=== PATIENT | female | born 1995 | race Hispanic/Latino ===

== ENCOUNTER 2016-08-23 17:23 | Emergency (ER) | payer OTHER ==
[2016-08-23 17:58] VITALS: TEMP 97.9
--- NOTE | 2016-08-23 18:13 | ED.PDOC ---
History of Present Illness - General Chief Complaint: Abdominal Pain Stated Complaint: lower abdominal pain/vomiting Time Seen by Provider: 08/23/16 17:58 Information Source: patient Exam Limitations: no limitations Additional Information: 4 MOS . 2 D FEVER, MYALGIAS, NAUSEA, OCCAS VOMITING, MILD DIARRHEA, ABD CRAMPING (GENERALIZED, LOWER ABD, BL). NO VAG BLEEDING OR D/C. NO DYSURIA. RECENT OB APPT 1 MOS; NEXT APPT THIS COMING TUES. DENIES ANY PROBLEMS WITH THE SO FAR. - History of Present Illness Quality: mild Improving Factors: nothing Worsening Factors: nothing Associated Symptoms: fever/chills, nausea/vomiting Review of Systems - Review of Systems Constitutional: States: fever. Denies: diaphoresis, weakness EENTM: States: no symptoms reported Respiratory: States: no symptoms reported Cardiology: States: no symptoms reported Gastrointestinal/Abdominal: States: diarrhea. Denies: constipation Genitourinary: States: no symptoms reported Musculoskeletal: States: back pain Skin: States: no symptoms reported Neurological: States: no symptoms reported Endocrine: States: no symptoms reported Hematologic/Lymphatic: States: no symptoms reported All other Systems: Reviewed and Negative Past Medical History (General) - Patient Medical History Hx Diabetes: No Hx Renal Disease: No Surgical History: no surgical history - Social History Hx Substance Use: No - Female History Hx Last Menstrual Period: 07/05/13 Expected Date of Delivery:: 04/11/14 Family Medical History - Family History Grandparents Family History: Unknown Hx Family Diabetes: Yes Age of Onset (years of age): 51 Physical Exam - Physical Exam General Appearance: Alert, Comfortable Eyes, Ears, Nose, Throat Exam: PERRL/EOMI, normal ENT inspection Neck: non-tender, full range of motion Respiratory: chest non-tender, lungs clear Cardiovascular/Chest: normal peripheral pulses, regular rate, rhythm Gastrointestinal/Abdominal: normal bowel sounds, non tender, soft, no organomegaly, no pulsatile mass, other - HEART TONES 152, WNL. Back Exam: normal inspection, no CVA tenderness, no vertebral tenderness Extremity: normal range of motion, non-tender, normal inspection Neurologic: associate buyer II-XII nml as tested, no motor/sensory deficits, alert, normal mood/affect, oriented x 3 Skin Exam: normal color, warm/dry Lymphatic: no adenopathy Progress - Progress Progress: 08/23/16 18:17 DISCOMFORT FROM AND 2 D VIRAL GASTROENTERITIS. NO DEHYDRATION. NO ALARMING SX TO WARRANT FURTHER W/U. I EXPLAINED TO PT THAT TYLENOL IS SAFE BUT ZOFRAN FOR NAUSEA IS NO LONGER CONSIDERED COMPLETELY SAFE. I EXPLAINED IT IS A GI VIRUS, THUS ABX WON'T HELP AND WOULD LIKELY WORSEN. Departure - Departure Clinical Impression: Viral gastroenteritis, Round ligament pain, Nausea and vomiting during prior to 22 weeks gestation Disposition: Discharge to Home or Self Care Condition: Fair Departure Forms: ED Discharge - Pt. Copy, Patient Portal Self Enrollment Instructions: DI for Viral Gastroenteritis -- Adult Diet: bland diet Activity: increase activity as tolerated Additional Instructions: Please keep your appt with OB this coming Saturday. Drink plenty of fluids and get plenty of rest. Tylenol is safe for the discomfort. I hope you feel better soon.
[2016-08-23 18:46] VITALS: BP 103/70; O2SAT 97
== END 2016-08-23 18:42 | disposition home or self-care (01) ==
LOC: ER 17:23
DX: O99.612 Diseases of the digestive system complicating pregnancy, second trimester (principal); A08.4 Viral intestinal infection, unspecified; O21.0 Mild hyperemesis gravidarum; Z3A.00 Weeks of gestation of pregnancy not specified; Z83.3 Family history of diabetes mellitus

== ENCOUNTER → 2016-11-01 | Outpatient (CLI) | payer OTHER | END | disposition home or self-care (01) | LOC: LAB.O 09:54 | PROVIDERS: ATTEND Obstetrics & Gynecology | DX: Z34.82 Encounter for supervision of other normal pregnancy, second trimester (principal); Z3A.24 24 weeks gestation of pregnancy ==

== ENCOUNTER 2018-01-11 09:24 | Emergency (ER) | payer SELFPAY ==
[2018-01-11 09:34] VITALS: O2SAT 98
--- NOTE | 2018-01-11 10:06 | ED.PDOC ---
History of Present Illness - General Chief Complaint: ENT Problem Stated Complaint: Sore throat Time Seen by Provider: 01/11/18 10:05 Source: patient - History of Present Illness Initial Comments: Latrice Dominique 22 y/o female stated that she had achy throat since last week not getting better.No fever or chills but pain on swallowing ,no drooling .no ill contact.Denies chronic medical problem.Stated also unable to find IUD by sono by her Engagement Manager no x ray done.sometimes with occasional low pelvic pain.No dysuria. Timing/Duration: last week Severity: moderate EENT Location: throat Prearrival Treatment: no prearrival treatment Presenting Symptoms: sore throat Improving Factors: nothing Worsening Factors: eating Associated Symptoms: sore throat Allergies/Adverse Reactions: Allergies NO KNOWN ALLERGY Allergy (Unverified 01/11/18 09:34) Home Medications: Ambulatory Orders Clindamycin HCl 150 mg PO TID #21 cap 01/11/18 predniSONE 20 mg PO DAILY #7 tab 01/11/18 Review of Systems - Review of Systems Constitutional: States: no symptoms reported EENTM: States: see HPI Respiratory: States: no symptoms reported Cardiology: States: no symptoms reported Gastrointestinal/Abdominal: States: no symptoms reported Genitourinary: States: no symptoms reported Musculoskeletal: States: no symptoms reported Skin: States: no symptoms reported Neurological: States: no symptoms reported Endocrine: States: no symptoms reported Hematologic/Lymphatic: States: no symptoms reported Past Medical History (General) - Patient Medical History Hx Stroke: No Hx Congestive Heart Failure: No Hx Diabetes: No Hx Renal Disease: No Surgical History: no surgical history - Vaccination History Hx Influenza Vaccination: Yes - 2017 - Social History Hx Tobacco Use: No Hx Alcohol Use: No Hx Substance Use: No Hx Physical Abuse: No Hx Emotional Abuse: No - Female History Patient is a Female of Child Bearing Age (10 -59 yrs old): Yes - Has IUD; last period 2017 Hx Last Menstrual Period: 11/07/17 - spotting-w/IUD Patient : No Family Medical History - Family History Grandparents Family History: Unknown Living Status: Still Living Hx Family Diabetes: Yes Age of Onset (years of age): 51 Progress - Progress Progress: 01/11/18 10:20 01/11/18 09:34 STREP A SCREEN CULTURE Stat 01/11/18 10:18 Pelvis,2 or More Views [RAD] Stat MONOSCREEN Stat Laboratory Results - last 24 hr 01/11/18 09:34 Group A Strep Rapid Negative 01/11/18 10:21 Vital Signs - 8 hr 01/11/18 09:30 Temperature 98.8 F Pulse Rate [ 92 H Left Radial] Respiratory 18 Rate Blood Pressure 138/89 [Left Arm] O2 Sat by Pulse 98 Oximetry - Results/Orders Results/Orders: 01/11/18 09:34 STREP A SCREEN CULTURE Stat 01/11/18 10:18 Pelvis,2 or More Views [RAD] Stat Laboratory Results - last 24 hr 01/11/18 01/11/18 01/11/18 09:34 10:25 10:28 Serum HCG, Qual Negative Monoscreen Negative Group A Strep Rapid Negative - EKG/XRAY/CT XRAY: pelvis - IUD sacral ala Departure - Departure Clinical Impression: Acute tonsillitis due to other specified organisms, IUD check up Time of Disposition: 11:40 Disposition: Discharge to Home or Self Care Condition: Fair Departure Forms: ED Discharge - Pt. Copy, Patient Portal Self Enrollment Instructions: Sore Throat, Adult (DC), Sore Throat in Adults Referrals: Bushra Avila NP [Primary Care Provider] - 1-2 Weeks Prescriptions: Clindamycin HCl 150 mg PO TID #21 cap predniSONE 20 mg PO DAILY #7 tab Home Medications: Ambulatory Orders Clindamycin HCl 150 mg PO TID #21 cap 01/11/18 predniSONE 20 mg PO DAILY #7 tab 01/11/18 Additional Instructions: Need to follow up with your primary Md for your achy throat and Dr. Thompson for your IUD
[2018-01-11] MEDS ORDERED: DEXAMETHASONE INJ 4 MG/ML VIAL IM ONE (10:19)
[2018-01-11] MEDS ORDERED: CLINDAMYCIN HCL CAP 150 MG CAP PO ONE (10:19)
--- NOTE | 2018-01-11 11:31 | RAD ---
EXAM DESCRIPTION: Pelvis,2 or More Views CLINICAL HISTORY: iud location COMPARISON: None FINDINGS: Frontal and frog-leg views of the pelvis were submitted. There is an intrauterine device projecting at the level of the right sacral ala. If further imaging is indicated correlation with a sonogram is recommended. There is no acute fracture or dislocation. IMPRESSION: The intrauterine device projects at the level of the right sacral ala. If further imaging is indicated correlation with a sonogram is recommended. Electronically signed by: Roger Jim MD 01/11/2018 11:30 AM CDT
[2018-01-11 11:45] VITALS: BP 108/69
[2018-01-11 12:14] VITALS: TEMP 98
== END 2018-01-11 11:52 | disposition home or self-care (01) ==
LOC: ER 09:24
DX: J03.90 Acute tonsillitis, unspecified (principal); R10.2 Pelvic and perineal pain; Z97.5 Presence of (intrauterine) contraceptive device
CPT/HCPCS: 36415; 72190; 84703; 86403; 87070; 87880; J1100

== ENCOUNTER 2018-03-23 19:22 | Emergency (ER) | payer MEDICAID ==
--- NOTE | 2018-03-23 20:56 | ED.PDOC ---
History of Present Illness - General Chief Complaint: Abdominal Pain Stated Complaint: pain from IUD Time Seen by Provider: 03/23/18 20:52 Information Source: patient Exam Limitations: no limitations - History of Present Illness Initial Comments: Vita Dominique 23 y/o female stated that she had sharp lower abdominal pain since the last 2 months stating had displaced IUD according to her OB-Regional Sales Leader Dr. Thompson which was shown by pelvic ultrasound and also had laparocopic exploration done but no IUD was found in the pelvic cavity.Has appointment with surgeon Dr. Bender in am for another outpatient laparoscopic procedure.No fever ,N /V,diarrheaor dysuria. Abdominal Pain Onset Location: suprapubic Pain Radiation: no radiation Quality: cramping, intermittent, sharpness Timing/Duration: other - 8 weeks Improving Factors: nothing Worsening Factors: nothing Associated Symptoms: other - see hpi Review of Systems - Review of Systems Constitutional: States: no symptoms reported EENTM: States: no symptoms reported Respiratory: States: no symptoms reported Cardiology: States: no symptoms reported Gastrointestinal/Abdominal: States: see HPI Genitourinary: States: no symptoms reported Musculoskeletal: States: no symptoms reported Past Medical History (General) - Patient Medical History Hx Stroke: No Hx Congestive Heart Failure: No Hx Diabetes: No Hx Renal Disease: No Surgical History: no surgical history - Vaccination History Hx Influenza Vaccination: Yes - Social History Hx Tobacco Use: No Hx Alcohol Use: No Hx Substance Use: No Hx Physical Abuse: No Hx Emotional Abuse: No - Female History Hx Last Menstrual Period: 11/07/17 - spotting-w/IUD Patient : No - Triage Comment ED Triage Comment: To have IUD removed surgically Saturday, but pelvic area very painful at present Family Medical History - Family History Grandparents Family History: Unknown Living Status: Still Living Hx Family Diabetes: Yes Age of Onset (years of age): 51 Physical Exam - Physical Exam General Appearance: Alert, Comfortable, No apparent distress Eyes, Ears, Nose, Throat Exam: normal ENT inspection Neck: non-tender, full range of motion, supple Respiratory: lungs clear, normal breath sounds, no respiratory distress Cardiovascular/Chest: normal peripheral pulses, regular rate, rhythm, no murmur Peripheral Pulses: No deficit Gastrointestinal/Abdominal: non tender, soft, tenderness - suprapubic area,no peritoneal signs Extremity: no pedal edema, no calf tenderness Neurologic: alert, oriented x 3 Progress - Progress Progress: 03/23/18 23:03 Laboratory Results - last 24 hr 03/23/18 03/23/18 03/23/18 21:15 21:15 22:15 MCV 89.7 MCH 30.0 MCHC 33.4 RDW 12.7 Plt Count 301 MPV 7.9 Absolute Neuts (auto) 4.90 Absolute Lymphs (auto) 2.20 Absolute Monos (auto) 0.50 Absolute Eos (auto) 0.30 Absolute Basos (auto) 0.00 Neutrophils % 62.1 Lymphocytes % 27.6 Monocytes % 6.6 Eosinophils % 3.3 Basophils % 0.4 Urine Color Yellow Urine Appearance Clear Urine pH 5.5 Ur Specific [place] 1.025 Urine Protein Negative Urine Glucose (UA) Negative Urine Ketones Negative Urine Blood Negative Urine Nitrite Negative Urine Bilirubin Negative Urine Urobilinogen 0.2 Ur Leukocyte Esterase Negative Urine RBC 0 Urine WBC 0-1 Ur Epithelial Cells 1-3 Urine Bacteria 0 Urine HCG, Qual Negative 03/23/18 23:04 Vital Signs - 8 hr 03/23/18 19:35 Temperature 98.1 F Pulse Rate [ 86 Right] Respiratory 18 Rate Blood Pressure 151/100 [Left Arm] O2 Sat by Pulse 98 Oximetry - EKG/XRAY/CT XRAY: abdomen - chest,pelvis -no pneumoperitoneum,iud pelvis Departure - Departure Clinical Impression: Abdominal pain Qualifiers: Abdominal location: lower abdomen, unspecified Qualified Code(s): R10.30 - Lower abdominal pain, unspecified Malpositioned IUD Qualifiers: Encounter type: initial encounter Qualified Code(s): T83.32XA - Displacement of intrauterine contraceptive device, initial encounter Time of Disposition: 23:06 Disposition: Discharge to Home or Self Care Departure Forms: ED Discharge - Pt. Copy, Patient Portal Self Enrollment Instructions: Intrauterine Devices (IUD) Referrals: Bushra Avila NP [Primary Care Provider] - 1-2 Weeks Home Medications: Ambulatory Orders Prozac 03/23/18 Additional Instructions: Keep appointment with 24 March 2018 am;Return to ER if symptoms worsens
--- NOTE | 2018-03-23 21:56 | RAD ---
EXAM: Chest,1 View CLINICAL INDICATION: Pain COMPARISON: There is no previous study for comparison. FINDINGS: A single view of the chest was obtained. The heart size is normal. The pulmonary vascularity is unremarkable. The lungs are clear. There is no consolidation, infiltrate, pleural effusion, or pneumothorax. IMPRESSION: No evidence of active pulmonary disease. Electronically signed by: Louis Diaz MD 03/23/2018 9:54 PM [facility]
--- NOTE | 2018-03-23 21:57 | RAD ---
EXAM: Abdomen 1 View (accession [id number]), Abdomen Lat/Decubitus (accession [id number]) CLINICAL INDICATION: Pain COMPARISON: 01/25/2015 FINDINGS: Supine and decubitus views of the abdomen were obtained. An IUD is noted in the pelvis. There is a nonspecific bowel gas pattern with no radiographic evidence of bowel obstruction. There are no dilated loops of small bowel. There is no evidence of pneumoperitoneum or pathologic calcifications. IMPRESSION: No evidence of an acute intraabdominal process. Electronically signed by: Louis Diaz MD 03/23/2018 9:55 PM PARBOILER
--- NOTE | 2018-03-23 21:57 | RAD ---
EXAM: Abdomen 1 View (accession [id number]), Abdomen Lat/Decubitus (accession [id number]) CLINICAL INDICATION: Pain COMPARISON: 01/25/2015 FINDINGS: Supine and decubitus views of the abdomen were obtained. An IUD is noted in the pelvis. There is a nonspecific bowel gas pattern with no radiographic evidence of bowel obstruction. There are no dilated loops of small bowel. There is no evidence of pneumoperitoneum or pathologic calcifications. IMPRESSION: No evidence of an acute intraabdominal process. Electronically signed by: Louis Diaz MD 03/23/2018 9:55 PM MELTER [employer]
[2018-03-23] MEDS ORDERED: HYDROCOD/APAP 5/325 (ER DISP) #3 TAB PO ONE (23:07)
[2018-03-23 23:25] VITALS: BP 140/84; TEMP 98.6; O2SAT 99
== END 2018-03-23 23:26 | disposition home or self-care (01) ==
LOC: ER 19:22
DX: T83.32XA Displacement of intrauterine contraceptive device, initial encounter (principal); R10.30 Lower abdominal pain, unspecified

== ENCOUNTER → 2018-03-26 | Outpatient (CLI) | payer MEDICAID ==
--- NOTE | 2018-03-26 14:45 | US ---
EXAM DESCRIPTION: Pelvis Transvaginal: Ultrasound. CLINICAL HISTORY: R10.2. IUD placement. Unusual location on recent pelvic radiographs. Pain in tenderness across pelvis. COMPARISON: Abdomen and pelvic radiographs 03/23/2018. TECHNIQUE: Endovaginal scanning, transpelvic scanning through the urine filled bladder: Madrigal-scale and Doppler modes. FINDINGS: Uterus 6.2 x 5.5 x 3.0 cm. Endometrial thickness is 3 mm. No echogenic IUD seen within the endometrial cavity. No fluid. Myometrium appears heterogeneous. Uterus not retroflexed. Cervix unremarkable.. Cul-de-sac contains minimal fluid. Right ovary 3.5 x 2.3 x 2.2 cm. Normal waveform and color Doppler vascularity. Small follicles but no cysts. No adnexal mass or free fluid. Left ovary 3.3 x 2.6 x 2.0 cm normal waveform and color Doppler vascularity. Small follicles but no cysts. No adnexal mass or free fluid. IMPRESSION: 1. IUD not seen within the endometrial canal or anywhere within the uterus. No uterine mass or fluid collection. IUD not seen in the adnexa. No adnexal mass. Minimal free fluid. 2. Bilateral ovaries with follicles. Normal size. Normal vascularity. CRITICAL COMMUNICATION: The critical value was discussed directly by text with BALBINA Saldivar at approximately 1415 hours, on 03/26/2018. Patient was instructed to go home and wait for, from physician's office. Electronically signed by: Sarthak Vasquez MD 03/26/2018 2:43 PM MEDICAL REVIEW SPECIALIST
== END ==
LOC: US 13:39
PROVIDERS: ATTEND Nurse Practitioner Family
DX: R10.2 Pelvic and perineal pain (principal)

== ENCOUNTER 2019-01-20 13:48 | Emergency (ER) | payer MEDICAID ==
--- NOTE | 2019-01-20 14:52 | ED.PDOC ---
History of Present Illness - General Chief Complaint: Back Pain or Injury Stated Complaint: Lower back pain Time Seen by Provider: 01/20/19 14:03 Source: patient, RN notes reviewed, Vital Signs reviewed, RN/MD Exam Limitations: no limitations - History of Present Illness Initial Comments: Patient is a 23yo F with no previous intra-abdominal surgeries presenting for lower back pain x 2 months that has worsened over the last week. She denies any fevers, chills, dysuria, hematuria, or urinary frequency. Back pain is exacerbated with movement. She denies any numbness, weakness, urinary incontinence, or fecal incontinence. Timing/Duration: 1 week, getting worse Quality/Severity: mild Back Pain Location: paraspinous muscles Method of Injury/Prior Injury: unknown Improving Factors: nothing Worsening Factors: movement Associated Symptoms: denies symptoms Allergies/Adverse Reactions: Allergies NO KNOWN ALLERGY Allergy (Verified 01/20/19 14:22) Home Medications: Ambulatory Orders NK 01/20/19 Review of Systems - Review of Systems Constitutional: Denies: chills, fever EENTM: States: no symptoms reported Respiratory: States: no symptoms reported Cardiology: States: no symptoms reported Gastrointestinal/Abdominal: States: abdominal pain. Denies: constipation, diarrhea, nausea, vomiting Genitourinary: States: frequency. Denies: dysuria, hematuria Musculoskeletal: States: back pain Neurological: States: no symptoms reported. Denies: numbness, weakness Past Medical History (General) - Patient Medical History Hx Stroke: No Hx of COPD: No Hx Cardiac Disorders: No Hx Congestive Heart Failure: No Hx Hypertension: No Hx Diabetes: No Hx Renal Disease: No Hx Cancer: No Surgical History: other - Vaccination History Hx Tetanus, Diphtheria Vaccination: Yes Hx Influenza Vaccination: Yes Hx Pneumococcal Vaccination: No - Social History Hx Tobacco Use: No Hx Alcohol Use: No Hx Substance Use: No Hx Substance Use Treatment: No Hx Depression: No Hx Physical Abuse: No Hx Emotional Abuse: No - Female History Patient is a Female of Child Bearing Age (10 -59 yrs old): Yes Hx Last Menstrual Period: 11/07/17 - spotting-w/IUD Patient : No - Denies Expected Date of Delivery:: 04/11/14 Family Medical History - Family History Grandparents Family History: Unknown Living Status: Still Living Hx Family Hypertension: Yes Hx Family Stroke: Yes Hx Cardiac Disease: Yes Hx Family Diabetes: Yes Age of Onset (years of age): 51 Physical Exam - Physical Exam General Appearance: Alert, Comfortable, No apparent distress, Well Developed, Well Groomed, Well Hydrated, Well Nourished Neck Exam: full range of motion, normal alignment, normal inspection Cardiovascular/Respiratory: regular rate, rhythm, no M/R/G, normal peripheral pulses, normal breath sounds, no respiratory distress Gastrointestinal/Abdominal: normal bowel sounds, tenderness - RUQ and RLQ Back Exam: other - R quadratus lumborum TTP Extremity Exam: normal range of motion, non-tender, no pedal edema Neurologic: no motor/sensory deficits, alert, normal mood/affect, oriented x 3 Skin Exam: normal color Progress - Progress Progress: DDx: Muscle spasm, cauda equina, discitis, herniation, appendicitis, renal stone, cholelithiasis, cholecystitis Patient presents for evaluation of low back pain x 2 months that has worsened recently. She overall had no focal neuro deficits in the lower extremities. she was otherwise well-appearing and non-toxic. UA was not consistent with signs of UTI or hematuria to suggest renal stone. She was found to have a negative test. There was no focal tenderness in the RLQ to suggest appendicit is. She did have TTP in the RUQ. There was concerns for gallstones given her presentation. Lab work did not suggest acute cholecystitis with normal WBC, normal bilirubin, and afebrile. We are unable to obtain ultrasound at this time. I discussed with patient lifestyle modifications currently. I discussed to return for ultrasound if symptoms worsen or if she develops fever. Patient was comfortable with plan for discharge home and outpatient follow-up. - Results/Orders Results/Orders: Laboratory Results - last 24 hr 01/20/19 01/20/19 01/20/19 14:20 14:20 14:30 WBC RBC Hgb Hct MCV MCH MCHC RDW Plt Count MPV Absolute Neuts (auto) Absolute Lymphs (auto) Absolute Monos (auto) Absolute Eos (auto) Absolute Basos (auto) Neutrophils % Lymphocytes % Monocytes % Eosinophils % Basophils % Sodium 137 Potassium 3.7 Chloride 98 L Carbon Dioxide 25 Anion Gap 17.7 BUN 12 Creatinine 0.49 L BUN/Creatinine Ratio 24.5 H Random Glucose 94 Serum Osmolality 273.3 L Calcium 9.7 Total Bilirubin 0.5 AST 29 ALT 40 Alkaline Phosphatase 62 Serum Total Protein 7.7 Albumin 4.2 Globulin 3.5 Albumin/Globulin Ratio 1.2 Lipase 25 Urine Color Yellow Urine Appearance Clear Urine pH 7.0 Ur Specific [place] 1.020 Urine Protein Negative Urine Glucose (UA) Negative Urine Ketones Negative Urine Blood Negative Urine Nitrite Negative Urine Bilirubin Negative Urine Urobilinogen 2.0 H Ur Leukocyte Esterase Negative Urine RBC 0 Urine WBC 0 Ur Epithelial Cells 1-3 Amorphous Sediment 3+ Urine Bacteria 0 Urine HCG, Qual Negative 01/20/19 14:30 WBC 7.3 RBC 4.67 Hgb 14.0 Hct 42.2 MCV 90.2 MCH 30.0 MCHC 33.2 RDW 12.9 Plt Count 295 MPV 7.9 Absolute Neuts (auto) 3.90 Absolute Lymphs (auto) 2.00 Absolute Monos (auto) 0.50 Absolute Eos (auto) 0.70 H Absolute Basos (auto) 0.10 Neutrophils % 54.0 Lymphocytes % 27.4 Monocytes % 7.4 Eosinophils % 10.1 H Basophils % 1.1 Sodium Potassium Chloride Carbon Dioxide Anion Gap BUN Creatinine BUN/Creatinine Ratio Random Glucose Serum Osmolality Calcium Total Bilirubin AST ALT Alkaline Phosphatase Serum Total Protein Albumin Globulin Albumin/Globulin Ratio Lipase Urine Color Urine Appearance Urine pH Ur Specific [place] Urine Protein Urine Glucose (UA) Urine Ketones Urine Blood Urine Nitrite Urine Bilirubin Urine Urobilinogen Ur Leukocyte Esterase Urine RBC Urine WBC Ur Epithelial Cells Amorphous Sediment Urine Bacteria Urine HCG, Qual Departure - Departure Clinical Impression: Muscle spasm Disposition: Discharge to Home or Self Care Condition: Good Departure Forms: ED Discharge - Pt. Copy, Patient Portal Self Enrollment Instructions: DI for Low Back Pain, DI for Back Spasm Diet: low fat, low cholesterol Activity: increase activity as tolerated Referrals: Bushra Avila NP [Primary Care Provider] - 1-2 Weeks Home Medications: Ambulatory Orders NK 01/20/19 Comments: Arnulfo Roberts D.O. [facility] #[id number]
[2019-01-20 16:23] VITALS: TEMP 98
[2019-01-20 16:36] VITALS: BP 118/70; O2SAT 97
== END 2019-01-20 16:37 | disposition home or self-care (01) ==
LOC: ER 13:48
DX: M62.830 Muscle spasm of back (principal)

== ENCOUNTER → 2019-05-22 | Outpatient (CLI) | payer MEDICAID | LOC: YCFC.O 10:20 | PROVIDERS: ATTEND Nurse Practitioner | DX: Z68.41 Body mass index [BMI] 40.0-44.9, adult (principal) ==

== ENCOUNTER → 2019-06-02 | Outpatient (CLI) | payer MEDICAID ==
--- NOTE | 2019-06-02 12:17 | MRI ---
EXAM DESCRIPTION: Orbit,Face Neck w/o Contrast: Magnetic Resonance Imaging. CLINICAL HISTORY: 24 years Female, Visual impairment COMPARISON: MRI scan of the brain with gadolinium IV contrast on the same visit. TECHNIQUE: Standard MRI protocol for the orbits without and with gadolinium IV contrast. FINDINGS: Normal enhancement of the intraorbital contents, including the optic nerves, optic globes, and extraocular muscles bilaterally with no abnormal enhancement or mass. Also normal enhancement and symmetric appearance of the bilateral lacrimal glands. Normal enhancement of the intraorbital fat with no mass. Normal size and enhancement of the preorbital bilateral optic nerves, optic chiasm, and bilateral distal optic tracts inserting into the optic chiasm. No mass visible. No suprasellar mass. Normal enhancement of the infundibulum and pituitary gland. Normal signal and enhancement of the included frontal and temporal lobes of the brain, and the included brain stem. There is loss of signal on some images due to metallic dental hardware structures. IMPRESSION: MRI scan of the bilateral orbits showing normal appearance of the included structures with normal enhancement. Electronically signed by: Sarthak Vasquez MD 06/02/2019 12:15 PM [facility]
--- NOTE | 2019-06-02 12:32 | MRI ---
EXAM DESCRIPTION: Brain w/wo Contrast: Magnetic Resonance Imaging. CLINICAL HISTORY: 24 years Female VISUAL IMPAIRMENT COMPARISON: MRI scan of the orbits today without and with gadolinium IV contrast TECHNIQUE: Multiplanar, high-field MRI, multiple conventional sequences, without and with gadolinium IV contrast, 1 mL per 5 kg body weight. No adverse reactions. Multiple axial diffusion sequences. FINDINGS: Normal FLAIR and T2-weighted signal in the periventricular white matter and clement-white matter junctions of the cerebral hemispheres. Normal contrast enhancement. . Normal signal in the bilateral basal ganglia. No hemorrhage, no cerebral edema, no mass-effect. Normal contrast enhancement. Normal signal in the brainstem and cerebellar hemispheres. No hemorrhage, no cerebral edema, no mass-effect. Normal contrast enhancement. Concordance of the diffusion and non-diffusion sequences with no evidence of acute or subacute infarction. Cortical sulci, ventricles, and other CSF spaces, and the subdural spaces are normally configured.. No effacement or displacement. No midline shift. No extra-axial hemorrhage. Normal contrast enhancement. Normal flow signal void in the major vessels of the [place], and the venous sinuses. IACs are symmetric bilaterally. Normal signal in the bilateral mastoid air cells, with normal enhancement. No mass effect in the bilateral Cerebellopontine angles. Normal contrast enhancement. Pituitary gland occupies all of the sella. Normal contrast enhancement. Base of the cerebellar tonsils is at the level of the foramen magnum. Mucoperiosteal thickening in the paranasal sinuses. Minimal contrast enhancement. The bony calvarium is intact. IMPRESSION: 1. Normal MRI scan without and with diffusion, without and with gadolinium IV contrast of the brain. 2. Mild chronic paranasal sinusitis. Electronically signed by: Sarthak Vasquez MD 06/02/2019 12:30 PM [facility]
== END ==
LOC: MRI 08:24
PROVIDERS: ATTEND Nurse Practitioner
DX: H54.7 Unspecified visual loss (principal); J32.9 Chronic sinusitis, unspecified